=== PATIENT | female | born 1990 | race Caucasian/White ===

== ENCOUNTER 2017-02-24 03:49 | Emergency (ER) | payer OTHER ==
--- NOTE | ~2017-02-24 | CT4 ---
[facility] A Service of [facility] RADIOLOGY TEXT RESULTS PATIENT: SOFÍA SNOW LOCATION: SED : [birth year] UNIT #: [id number] AGE: [address]: David Reyes MD SEX: F ORDER DR: [id number] [address] [address] [id number] MR#: [id number] Acc #: [id number] NAME: SOFÍA SNOW : 1990 SEX: F STUDY DATE/TIME: 02/24/2017 04:02 UNIT: SED ROOM: STUDY DESCRIPTION: CT Abd and Pelv Wo Cont Attending Physician: David Reyes M.D. Ordering Physician: David Reyes M.D. MEDICAL IMAGING REPORT This report is preliminary unless electronic signature is present. EXAM CT abdomen and pelvis 02/24 at 04:02 INDICATION Woke up 45 minutes ago with lower abdominal pain and vomiting. Pain currently rates 5/10. TECHNIQUE Axial images were obtained through the abdomen and pelvis without contrast. Multiplanar reformats were obtained. This CT exam was performed with one or more of the following radiation dose reduction techniques: automatic exposure control, adjustment of mA and/or kV according to patient size, and iterative reconstruction. COMPARISON No comparison. FINDINGS ABDOMEN: Lung bases are clear. Gallbladder is normal. Tiny nonobstructing stone noted in the right kidney. Additionally, there is minimal right hydronephrosis secondary to a 2.0 mm stone at the right ureterovesical junction. No other stones are seen. The unenhanced solid organs are otherwise normal. The unopacified GI tract is normal except for moderate stool volume in the colon. PELVIS: The appendix is normal. The remainder of the GI tract is normal as well. Urinary bladder otherwise unremarkable. Solid pelvic organs are normal. No free fluid is seen. IMPRESSION 1. Very mild hydronephrosis on the right secondary to a 2.0 mm stone at the ureterovesical junction. There is also a tiny nonobstructing [facility] A Service of [facility] RADIOLOGY TEXT RESULTS PATIENT: SOFÍA SNOW LOCATION: SED : 92 UNIT #: [id number] AGE: [address]: David Reyes MD SEX: F ORDER DR: stone in the right kidney. 2. Possible constipation. Correlate clinically. The GI tract, including the appendix, is otherwise normal. 3. Remainder of the abdomen and pelvis CT is normal. Dictated by... Earl Marroquin Jr., M.D. THIS IS AN ELECTRONICALLY VERIFIED REPORT Earl Marroquin Jr., M.D. at 02/24/2017 9:26 PM [place] TD: 02/24/2017 09:53 JOB #: [id number] MEDICAL IMAGING REPORT Page 1 of 1
[2017-02-24 03:30] LABS: URINE SOURCE CLEAN CATCH
[2017-02-24 03:32] LABS: MICRO INDICATED? YES; URINE APPEARANCE CLEAR; URINE BILIRUBIN NEG (NEG); URINE BLOOD 2+ (NEG); URINE COLOR YELLOW; URINE GLUCOSE NEG (NORM); URINE KETONE NEG (NEG); URINE LEUKOCYTE ESTERASE NEG (NEG); URINE NITRATE NEG (NEG); URINE PROTEIN NEG (NEG); URINE UROBILINOGEN 0.2 MG/DL (NORM)
[2017-02-24 03:35] LABS: CULTURE INDICATED? NO; URINE BACTERIA NEG (NEG); URINE SQUAMOUS EPITHELIAL CELL OCCAS /[HPF]; URINE WBC 0-2 /[HPF] (0-5)
[2017-02-24 03:38] LABS: BASOPHIL# 0.1 X10e3 (0-0.3); BASOPHIL% 0.7 % (0-2.5); EOSINOPHIL% 0.3 % (0.0-7.0); HEMATOCRIT 40.4 % (35.0-45.0); HEMOGLOBIN 13.8 gm/dL (12.0-16.0); LYMPHOCYTE# 3.3 X10e3 (1.0-3.5); LYMPHOCYTE% 47.6 % (17.0-45.0); MEAN CELL VOLUME 92.1 FL (83-96); MEAN CORPUSCULAR HEMOGLOBIN 31.5 PG (28-34); MEAN CORPUSCULAR HGB CONC 34.2 g/dL (30-36); MEAN PLATELET VOLUME 7.4 FL (6.5-11.5); MONOCYTE# 0.4 X10e3 (0-1.0); MONOCYTE% 6.3 % (3.0-12.0); NEUTROPHIL# 3.1 X10e3 (1.5-7.1); NEUTROPHIL% 45.1 % (40-75); PLATELET COUNT 293 X10e3 (140-420); RED BLOOD COUNT 4.39 X10e (3.90-5.30); RED CELL DISTRIBUTION WIDTH 12.7 % (11.0-15.5)
[2017-02-24 03:48] LABS: DIFF IND NO
[~2017-02-24 03:49] MED LIST: ADDERALL20 M1 PO; EFFEXOR-XR37.5 MG PO; LAMICTAL100 MG PO
[2017-02-24 03:50] LABS: ALBUMIN SERUM 4.1 g/dL (3.5-5.0); BILIRUBIN, DIRECT 0.1 mg/dL (0.0-0.2); BILIRUBIN,INDIRECT 0.6 mg/dL (0.0-0.9); BILIRUBIN,TOTAL 0.7 mg/dL (0.2-2.0); BUN/CREATININE RATIO 16.25; CALCIUM SERUM 9.4 mg/dL (8.4-10.2); CREATININE SERUM 0.8 mg/dL (0.6-1.4); GLOM FILT RATE Estimated 102.6 mL/min (>60); POTASSIUM 3.6 mmol/L (3.5-5.1); PROTEIN TOTAL SERUM 7.6 g/dL (6.0-8.3)
== END 2017-02-24 04:53 | disposition home or self-care (01) ==
LOC: SED 03:49
PROVIDERS: Emergency Medicine
DX: N13.2 Hydronephrosis with renal and ureteral calculous obstruction (principal); F32.9 Major depressive disorder, single episode, unspecified; F90.9 Attention-deficit hyperactivity disorder, unspecified type; Z88.2 Allergy status to sulfonamides; Z88.8 Allergy status to other drugs, medicaments and biological substances; Z79.899 Other long term (current) drug therapy
CPT/HCPCS: 36415; 74176; 80048; 80076; 81003; 84703; 85025; 96361; 96374; 96375; 99284; J1885; J2405